=== PATIENT | male | born 1935 ===

== ENCOUNTER 2018-09-08 00:25 | Inpatient (IN) | payer MEDICARE, OTHER ==
[2018-09-08] VITALS (11 sets, daily range): BP systolic 101–157; BP diastolic 58–94
[~2018-09-08] VITALS: Ht 175.3 cm; Wt 75.7 kg
[~2018-09-08 00:25] MED LIST: ASPI-757 PO; LUTE20CA11 PO; OXYB5TAB80 PO; TERA5CAP59 PO; [UNRECOGNIZED DRUG - OTHER] PO
[2018-09-08] MEDS ORDERED: ACETAMINOPHEN 500 MG TAB PO ONE (06:00)
[2018-09-08] MEDS ORDERED: LIDOCAINE/SOD BICARB 8.4% SYR ID ONE (06:00)
[2018-09-08] MEDS ORDERED: FAMOTIDINE 20 MG TAB PO ONE (06:00)
[2018-09-08] MEDS ORDERED: BACITRACIN 50000 UNIT/VIAL 50,000 UNIT in NS 0.9% IRRIG(*) 1000ML PLCT 1,000 ML IR PRN (06:00)
[2018-09-08] MEDS ORDERED: NORMOSOL R SOLN(*) 1000 ML BAG 1,000 ML IV PRN (06:00)
[2018-09-08] MEDS ORDERED: MIDAZOLAM 2 MG/2 ML VIAL IVP PRN (06:00)
[2018-09-08] MEDS ORDERED: CLINDAMYCIN(*) 900 MG/NS 50 ML 50 ML IVPB ONE (06:00)
[2018-09-08] MEDS ORDERED: PREGABALIN 75 MG CAPSULE PO ONE (06:00)
[2018-09-08] MEDS ORDERED: fentaNYL CITR 100 MCG/2 ML AMP ONE ×2 (06:36→09:44)
[2018-09-08] MEDS ORDERED: KETAMINE HCL-NS 50 MG/5 ML SYR ONE (06:36)
[2018-09-08] MEDS ORDERED: DEXAMETHASONE SOD PHOS 10MG/ML ONE (06:37)
[2018-09-08] MEDS ORDERED: ONDANSETRON 4 MG/2 ML VIAL ONE (06:37)
[2018-09-08] MEDS ORDERED: PROPOFOL EMUL(*) 10MG/ML 20 ML 20 ML ONE (06:37)
[2018-09-08] MEDS ORDERED: LIDOCAINE MPF 1% 5 ML VIAL ONE (06:37)
[2018-09-08] MEDS ORDERED: ROCURONIUM BR 10 MG/ML 5 ML SY 5 ML ONE ×2 (06:37→07:42)
[2018-09-08] MEDS ORDERED: SUGAMMADEX SOD 500 MG/5 ML SDV ONE (08:01)
[2018-09-08] MEDS ORDERED: ROPIVACAINE 0.2% 20 ML VIAL ONE (08:10)
--- NOTE | 2018-09-08 08:39 | RADIOLOGY IMAGING REPORT ---
FACILITY: [facility] [place] PATIENT NAME: Jonatan La : 1935 MR: [id number] V: [id number] EXAM DATE: ORDERING PHYSICIAN: JUAN PAYNE TECHNOLOGIST: Location: [facility] [place] Patient: Jonatan La : 1935 Visit/Account:[id number] Date of Sevice: 09/08/2018 L-SPINE >4 VIEWS HISTORY: L4-L5 DISC HERNIATION Additional history: None COMPARISON: None. FINDINGS: This is a single crosstable lateral view which is intraoperative. There may be six nonrib-bearing yady mbar-type vertebral bodies. For the purposes of this examination the most inferior nonrib-bearing ve rtebral bodies labeled as L5. There is advanced disc space narrowing at L4-5 and a localizer instrum ent is located posterior to the L4-5 disc. Ray-Joycelyn sponges in the same area. IMPRESSION: Intraoperative localization at L4-5. Advanced disc space narrowing at this level.. Report Dictated By: Abdirashid Musa MD at 09/08/2018 8:27 AM Report E-Signed By: Abdirashid Musa MD at 09/08/2018 8:31 AM WSN:[id number]
[2018-09-08] MEDS ORDERED: ACETAMINOPHEN(*)1000 MG/100 ML 100 ML IVPB PRN (09:00)
[2018-09-08] MEDS ORDERED: LR(*) 1000 ML BAG 1,000 ML IV PRN (09:00)
[2018-09-08] MEDS ORDERED: MAGNESIUM HYDROXIDE* 30ML UDCP PO PRN (09:00)
[2018-09-08] MEDS ORDERED: BISACODYL 10 MG SUPP PR PRN (09:00)
[2018-09-08] MEDS ORDERED: ACETAMINOPHEN 500 MG TAB PO PRN (09:00)
[2018-09-08] MEDS ORDERED: BENZOCAINE/MENTHOL 1 EACH LOZG PO PRN (09:00)
[2018-09-08] MEDS ORDERED: DIAZEPAM 5 MG TAB PO PRN (09:00)
[2018-09-08] MEDS ORDERED: HYDROmorphone HCL 2 MG/ML SDV IVP PRN (09:00)
[2018-09-08] MEDS: DOCUSATE SODIUM 100 MG CAP PO SCH (09:00)
[2018-09-08] MEDS ORDERED: diphenhydrAMINE 25 MG CAP PO PRN (09:00)
[2018-09-08] MEDS ORDERED: ONDANSETRON 4 MG/2 ML VIAL IVP PRN (09:00)
[2018-09-08] MEDS ORDERED: FLUSH 10 ML SYR IVP PRN (09:00)
[2018-09-08] MEDS ORDERED: oxyCODONE HCL 5 MG CAP PO PRN (09:00)
[2018-09-08] MEDS ORDERED: APAP/HYDROCODONE 325/5 TAB PO PRN (09:00)
--- NOTE | 2018-09-08 12:10 | NUR ---
0930 Urinal given describes burning, unsteady stream. Clear light yellow urine. Output unmeasured due to pt still dribbling. 0933 Pt describes bilateral tingling in feet. increased senstation from before surgery. Given fent 25mcg at o946 for increase in pain. unable to describe using numeric scale. BP also correlated increase. Assessed post intervention BP decreased. 0953 States pain is better. only sensation is numb now. Still frustrated with feeling of full blatter. Kept urinal in place. 0959 dumped urinal 200cc out wnl Let pt rest. Checked frequently. On RA Occ sleeping, Occ awake quiet in bed looking around. Attempted to contact [employer] a number of times. Extention 4111 was not opperating and [employer] phone line continually had busy signal. Continue to try to contact and monitor pt. Dumped Urinal again 350cc measured and WNL 1100 After report given. Checked on pt. Pt in deep sleep O2 dropped to 84% on RA. Pt woken up and told to deep breath placed 2L n.c. o n pt with transfer. 1110 Pt transfered self to bed by scooting. Pain 2/10 and tollerable. VS recorded in PACU. SBAR and pt passed on to JUAN RAMON JOHNSON on [employer]
--- NOTE | 2018-09-08 15:08 | NUR ---
Physical Therapy Impression PT eval completed. After application of shoes with supportive orthodics, pt was able to ambulate safely with FWW and SBA/Modified indep. Pt completed distance of 200' and up/down platform step x 3 reps to simulate entry to home. Pt practiced log roll technique and demos good understanding and is indep with this skill. Pt notes that he will have a friend obtain a FWW from [facility] today and his son will be staying with him initially. Physical Therapy Goals 1. Pt to be modified indep with bed mobility and sup<>sit with log roll 2. Pt to be SBA/CGA for sit to/from stand with supportive shoes for balance 3. Pt to be SBA/Modified indep for ambulation x 150' with use of FWW 4. Pt to complete up/down 3 steps with rail to simulate entry to home with SBA/Modified indep Patient's Goals
--- NOTE | 2018-09-08 15:50 | Hospitalist Progress Note ---
Subjective Progress Notes Subjective He denies cp/sob. He received 1450cc of crystalloid, dexamethasone, and ephedrine intra-op. Physical Exam Vital Signs Date Time Temp Pulse Resp B/P (MAP) Pulse Ox O2 Delivery O2 Flow Rate FiO2 09/08/18 11:45 74 106/66 (79) 95 09/08/18 11:30 Nasal Cannula 2.0 09/08/18 11:14 98.2 20 General Appearance: Alert, Awake, No Acute Distress Cardiovascular: Regular Rate and Rhythm Respiratory: Clear to Auscultation Extremities: No Edema Assessment and Plan Problems: (1) Status post laminectomy Status: Acute Assessment & Plan: No CV/pulmonary issues. Patient was told to wait to restart ASA until Dr. Wilson clears him. (2) BPH (benign prostatic hyperplasia) Status: Chronic Assessment & Plan: Continue chronic oxybutynin, and terazosin. MAGGIE THOMPSON MD Sep 08, 2018 15:50
[2018-09-08] MEDS ORDERED: NS 0.9% 500 ML VISIV BAG IV PRN (15:55)
[2018-09-08] MEDS ORDERED: NS 0.9% 500 ML BAG IV PRN (16:55)
[2018-09-08] MEDS: OXYBUTYNIN CHL 5 MG TAB PO SCH (17:00)
[2018-09-08] MEDS: CLINDAMYCIN(*) 900 MG/NS 50 ML 50 ML IVPB SCH ×2 (17:26→23:56)
[2018-09-08] MEDS ORDERED: PATIENT'S OWN MED PO SCH (21:00)
--- NOTE | 2018-09-09 04:01 | OPERATIVE REPORT 1 ---
EVENT DATE: September 08, 2018 SURGEON: Giovani Wilson MD ANESTHESIOLOGIST: Obinna Doran DO ANESTHESIA: General endotracheal anesthesia. PANAMA HAT BLOCKER: LIYA Back PREOPERATIVE DIAGNOSIS Byur-ezmhisj-tzjl-right L5 radiculopathy with neurogenic claudication. POSTOPERATIVE DIAGNOSIS Rmph-qoswqzz-jyad-right L5 radiculopathy with neurogenic claudication. PROCEDURE PERFORMED L4-L5 laminectomy. INTRAVENOUS FLUIDS 1100 mL. ESTIMATED BLOOD LOSS 60 mL. IMPLANTS None. SPECIMENS None. DRAINS None. COMPLICATIONS None. DISPOSITION Postanesthesia care unit. INDICATIONS FOR PROCEDURE Jonatan La is an 82-year-old gentleman who presented to my clinic with a complaint of radiating left lower extremity pain as well as significant weakness throughout the left leg. He had some milder symptoms on the right. He previously had some anterior thigh pain that improved with physical therapy, and at the point of presentation, a majority of his symptoms had to do with the weakness. He had undergone a left-sided transforaminal epidural steroid injection that gave him excellent relief for about six or eight hours after the injection, where he was able to perform normal tasks. Once that injection wore off, however, symptoms returned and were significant. Physical examination was essentially normal with the exception of reproduction of pain down the left leg with extension of the thoracolumbar spine. Strength and sensation were intact. Diagnostic studies showed severe disk height loss at L4-L5 and some focal compression on both the L4 and L5 nerve root on that left side. Secondary to ongoing symptoms and failure of nonsurgical care, Mr. La was offered and elected to undergo an L4-L5 laminectomy. Prior to surgery, I explained in detail to the patient the possible risks of surgery. These risks include bleeding, infection, damage to surrounding structures, nerve root injury, spinal fluid leak, meningitis, persistent and/or worsening pain, need for further surgery, , blindness, sexual dysfunction, autonomic nervous system dysfunction, and other unforeseen medical and surgical complications. An understanding that in general, spinal surgery is more predictive at improving extremity discomfort than axial spine pain was stressed. DESCRIPTION OF PROCEDURE On the day of surgery, the patient was met in the preoperative hold area and all questions were answered. His operative site was identified and marked by myself. The patient was brought in good condition to the operating room, and after succumbing to anesthesia, he was positioned in the prone position on a Jeramy table. All bony protuberances and soft tissues were well padded in the standard fashion. Preoperative antibiotics were administered according to the appropriate timing schedule. Care was taken to maintain appropriate perfusion pressures during anesthesia. At the conclusion of the procedure, sponge and needle counts were correct x2. A final time-out was undertaken by members of the operating team to confirm correct patient, correct levels and correct surgery. The patient was then prepped and draped in the standard sterile orthopedic fashion, and a vertical incision was made overlying the intended surgical levels. Sharp dissection was carried out down to the posterior elements, and soft tissues were elevated off the posterior elements in a subperiosteal manner. A lateral radiograph was obtained to confirm appropriate spinal level. The spinous process of L4 was removed using a Leksell rongeur. The lamina of L4 was thinned down the midline using a Leksell rongeur and a high-speed bur. At that point, we used a Miller curette to undermine the superior insertion of the ligamentum flavum from the inferior aspect of the L4 lamina. A Walton elevator was used to clear any dural adhesions from surrounding bone and soft tissue prior to use of the Kerrison punch. A #4 Kerrison rongeur was then used to perform midline decompression, and we then performed bilateral lateral recess decompressions using a combination of the #4 and #3 Kerrison. We identified the traversing and exiting nerve roots and ensured that they were well decompressed. A Jain probe was used to ensure that all of the foramina were well decompressed and that the nerves were well decompressed bilaterally. Meticulous hemostasis was obtained using electrocautery as well as FloSeal in the lateral recesses, and we checked the decompression one final time, finding it to be excellent. The wound was then irrigated with copious sterile saline solution and closed in layers using a running Stratafix suture for the deep fascia, inverted interrupted sutures for the subcutaneous tissue, and then a running subcuticular skin stitch. Sponge and needle counts were correct x2. POSTOPERATIVE CARE PLAN Mr. La will remain in the hospital until he meets discharge criteria. He will then be discharged home with instructions to follow up in two weeks for wound check and examination. DUANE
[2018-09-09 05:55] VITALS: BP 101/53
[2018-09-09 06:47] VITALS: BP 108/63
--- NOTE | 2018-09-09 07:42 | Hospitalist Progress Note ---
Subjective Progress Notes Subjective No cp/sob. He slept well last night. Physical Exam Vital Signs Date Time Temp Pulse Resp B/P (MAP) Pulse Ox O2 Delivery O2 Flow Rate FiO2 09/09/18 06:47 97.7 54 16 108/63 (78) 90 Room Air 09/08/18 11:30 2.0 Intake and Output 09/09/18 07:02 Intake Total 5000 ml Output Total 1150 ml Balance 3850 ml Intake Oral 1000 ml IV Total 4000 ml Output Urine Total 550 ml Emesis 550 ml Estimated Blood Loss 50 ml # Voids 1 General Appearance: Alert, Awake, No Acute Distress Assessment and Plan Problems: (1) Status post laminectomy Status: Acute Assessment & Plan: No CV/pulmonary issues. Patient was told to wait to restart ASA until Dr. Wilson clears him. (2) BPH (benign prostatic hyperplasia) Status: Chronic Assessment & Plan: Continue chronic oxybutynin, and terazosin. Exam Sepsis Risk: No Definite Risk MAGGIE THOMPSON MD Sep 09, 2018 07:42
[2018-09-09] MEDS: OXYBUTYNIN CHL 5 MG TAB PO SCH (08:06)
[2018-09-09] MEDS: CLINDAMYCIN(*) 900 MG/NS 50 ML 50 ML IVPB SCH (08:07)
[2018-09-09] MEDS: DOCUSATE SODIUM 100 MG CAP PO SCH (09:00)
[2018-09-09] MEDS ORDERED: PATIENT'S OWN MED PO SCH (09:00)
--- NOTE | 2018-09-09 09:02 | NUR ---
Physical Therapy Impression Checked in with Pt to see if any concerns regarding mobility before discharge. Pt reports some unsteadiness and wanting to ambulate. Pt ambulated 500 ft with SBA and use of RW. Pt appearing steady with good tolerance to mobility. Pt instructed on proper height of RW and how to adjust. Pt left sitting in reclining chair with all needs met. Pt has met all PT goals and is safe for discharge home with no anticipated needs. Physical Therapy Goals 1. Pt to be modified indep with bed mobility and sup<>sit with log roll 2. Pt to be SBA/CGA for sit to/from stand with supportive shoes for balance 3. Pt to be SBA/Modified indep for ambulation x 150' with use of FWW 4. Pt to complete up/down 3 steps with rail to simulate entry to home with SBA/Modified indep Patient's Goals
[2018-09-09 10:12] VITALS: BP 102/66
--- NOTE | 2018-09-09 12:51 | NUR ---
This Physical Therapist or Tier In was present for the entire physical therapy session directing the services, making the skilled judgement, and was not engaged in treating another patient or doing another task at the same time as the treatment session. Addendum: 09/09/18 at 1251 by ANY GEORGES PT Amended: Links added.
== END 2018-09-09 10:46 | disposition home or self-care (01) | DRG 517 ==
LOC: OR 00:25 → MED 11:10
PROVIDERS: ADMIT Orthopaedic Surgery; ATTEND Orthopaedic Surgery
PROC: 01NB0ZZ Release Lumbar Nerve, Open Approach (ICD-10-PCS; principal; 2018-09-08 06:59)
DX: M48.062 Spinal stenosis, lumbar region with neurogenic claudication (principal); N40.0 Benign prostatic hyperplasia without lower urinary tract symptoms; M54.10 Radiculopathy, site unspecified
CPT/HCPCS: 72020; 97161; J1100; J2001; J2405; J2704; J2795; J3010; J3490; J7030; J7040